=== PATIENT | female | born 1965 ===

== ENCOUNTER 2018-02-09 13:24 | Emergency (ER) | payer OTHER ==
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
[2018-02-09 13:54] VITALS: TEMP 98
--- NOTE | 2018-02-09 15:25 | RAD ---
PROCEDURE: Cervical Spine Radiographs. HISTORY: Pain. COMPARISON: None. FINDINGS: BONES: Alignment maintained. No fracture. Dens Intact. DISC SPACES: There has been fusion at C4-5 with a bone plug and anterior plate and screws. There is disc degeneration at C5-6 with anterior and posterior osteophytes SOFT TISSUES: Normal. No prevertebral soft tissue swelling. OTHER FINDINGS: None. IMPRESSION: There has been fusion at C4-5 with a bone plug and anterior plate and screws. There is disc degeneration at C5-6 with anterior and posterior osteophytes
--- NOTE | 2018-02-09 15:26 | RAD ---
HISTORY: fall r/o fx COMPARISON: No prior. FINDINGS: BONES: Alignment maintained. No fracture. DISC SPACES: Normal. SOFT TISSUES: Normal. OTHER FINDINGS: None. IMPRESSION: Normal radiographs of the thoracic spine.
--- NOTE | 2018-02-09 15:27 | RAD ---
PROCEDURE: Radiographs of the Lumbar Spine. HISTORY: fall r/o fx COMPARISON: No prior. FINDINGS: BONES: Normal alignment. No listhesis. No fracture. DISC SPACES: Unremarkable. OTHER FINDINGS: None. IMPRESSION: Unremarkable radiographs of the lumbar spine.
--- NOTE | 2018-02-09 15:28 | RAD ---
PROCEDURE: Right Hip and pelvis Radiographs. HISTORY: fall r/o fx COMPARISON: None. FINDINGS: BONES: Normal. No fracture. JOINTS: Normal. SOFT TISSUES: Normal. OTHER FINDINGS: None. IMPRESSION: Normal radiographs of right hip.
[2018-02-09 16:11] VITALS: BP 122/69; PULSE 55; RESP 18; O2SAT 96
== END 2018-02-09 16:14 | disposition home or self-care (01) ==
LOC: ED 13:24
DX: Z04.1 Encounter for examination and observation following transport accident (principal); V03.00XA Pedestrian on foot injured in collision with car, pick-up truck or van in nontraffic accident, initial encounter; Y92.410 Unspecified street and highway as the place of occurrence of the external cause